=== PATIENT | female | born 1960 | race Caucasian/White ===

== ENCOUNTER 2019-01-03 19:22 | Emergency (ER) | payer BC, OTHER ==
--- NOTE | 2019-01-03 20:25 | ED ---
Dizziness - HPI Summary HPI Summary: Patient complains of elevated BP in 2 SBP 190s, lightheadedness, anxiety, migraine headache. Patient also complains of trouble sleeping over the past few months. Denies fever, cough, sore throat, CP, SOB, N/V/V abdominal pain, change in urine, change in BM. Medical history is migraines. No prior history of hypertension. Positive smoker, daily EtOH. - History Of Current Complaint Chief Complaint: EDDizziness Stated Complaint: HEADACHE/DIZZINESS/HIGH BLOOD PRESSURE PER PT Time Seen by Provider: 01/03/19 20:21 Hx Obtained From: Patient Onset/Duration: Resolved Timing: Minutes Severity Initially: Moderate Severity Currently: Mild Character: Lightheaded Aggravating Factor(s): Nothing Alleviating Factor(s): Nothing - Allergies/Home Medications Allergies/Adverse Reactions: Allergies Allergy/AdvReac Type Severity Reaction Status Date / Time Penicillins Allergy Rash And Verified 10/03/17 14:00 Itching codeine AdvReac Severe Anxiety Verified 10/03/17 14:00 Sulfa (Sulfonamide AdvReac Intermediate Agitation Verified 10/03/17 14:00 Antibiotics) Home Medications: Home Medications Cholecalciferol TAB* [Vitamin D TAB*] 1,000 unit PO DAILY 01/03/19 [History Confirmed 01/03/19] PMH/Surg Hx/FS Hx/Imm Hx Endocrine/Hematology History: Denies: Hx Anticoagulant Therapy, Hx Diabetes Cardiovascular History: Denies: Hx Hypertension, Hx Pacemaker/ICD GI History: Reports: Hx Hiatal Hernia - not sure if hiatal History: Denies: Hx Dialysis, Hx Renal Disease Musculoskeletal History: Reports: Other Musculoskeletal History - finger right pointer Sensory History: Denies: Hx Contacts or Glasses, Hx Hearing Aid Opthamlomology History: Denies: Hx Contacts or Glasses EENT History: Denies: Hx Deafness Neurological History: Denies: Hx Dementia Psychiatric History: Reports: Hx Anxiety - on xanex wants to take am of surgery Denies: Hx Panic Disorder - Cancer History Hx Chemotherapy: No Hx Radiation Therapy: No - Surgical History Surgery Procedure, Year, and Place: C-SECTIONS X3. HERNIA 1993. APPENDECTOMY. TONSILLECTOMY. 2016 [facility] hernia Hx Anesthesia Reactions: No Infectious Disease History: No Infectious Disease History: Denies: Traveled Outside the [place] in Last 30 Days - Family History Known Family History: Positive: Non-Contributory - Social History Alcohol Use: Daily Alcohol Amount: beer, wine Substance Use Type: Reports: None Smoking Status (MU): Light Every Day Tobacco Smoker Amount Used/How Often: 1 PPD quit 2 years ago and began again Have You Smoked in the Last Year: Yes Review of Systems Constitutional: Negative Eyes: Negative ENT: Negative Cardiovascular: Negative Respiratory: Negative Gastrointestinal: Negative Genitourinary: Negative Musculoskeletal: Negative Skin: Negative Positive: Headache Positive: Anxious All Other Systems Reviewed And Are Negative: Yes Physical Exam - Summary Physical Exam Summary: Neuro exam normal. Ambulating normally. Triage Information Reviewed: Yes Vital Signs On Initial Exam: Initial Vitals Temp Pulse Resp BP Pulse Ox 99.3 F 101 18 167/100 97 01/03/19 19:27 01/03/19 19:27 01/03/19 19:27 01/03/19 19:27 01/03/19 19:27 Vital Signs Reviewed: Yes Appearance: Positive: Well-Appearing Skin: Positive: Warm Head/Face: Positive: Normal Head/Face Inspection Eyes: Positive: Normal Neck: Positive: Supple Respiratory/Lung Sounds: Positive: Clear to Auscultation Cardiovascular: Positive: Normal Abdomen Description: Positive: Nontender Musculoskeletal: Positive: Normal Neurological: Positive: Normal Psychiatric: Positive: Normal AVPU Assessment: Alert - Sunflower Coma Scale Best Eye Response: 4 - Spontaneous Best Motor Response: 6 - Obeys Commands Best Verbal Response: 5 - Oriented Coma Scale Total: 15 Diagnostics - Vital Signs Vital Signs Temp Pulse Resp BP Pulse Ox 01/03/19 19:27 99.3 F 101 18 167/100 97 - Laboratory Result Diagrams: 01/03/19 20:43 01/03/19 20:43 Lab Statement: Any lab studies that have been ordered have been reviewed, and results considered in the medical decision making process. Dizzy Course/Dx - Course Course Of Treatment: Patient complains of elevated BP in 2 SBP 190s, lightheadedness, anxiety, migraine headache. Patient also complains of trouble sleeping over the past few months. Denies fever, cough, sore throat, CP, SOB, N /V/V abdominal pain, change in urine, change in BM. Medical history is migraines. No prior history of hypertension. Positive smoker, daily EtOH. Vital signs within normal limits. Labs unremarkable. EKG sinus rhythm. Symptoms resolved prior prior to history of present illness except for migraine. Migraine controlled with migraine cocktail. - Diagnoses Provider Diagnoses: Lightheadedness, Anxiety, Migraine Discharge ED - Sign-Out/Discharge Documenting (check all that apply): Patient Departure Patient Received Moderate/Deep Sedation with Procedure: No - Discharge Plan Condition: Stable Disposition: HOME Patient Education Materials: Migraine Headache (ED), Lightheadedness (ED), Anxiety (ED) Referrals: Talita Jordan [facility] [Primary Care Provider] - Additional Instructions: Drink plenty of fluids to maintain hydration. Monitor your blood pressure for 1 week. Follow-up with primary care. - Billing Disposition and Condition Condition: STABLE Disposition: Home - Attestation Statements Provider Attestation: I was available for consult. This patient was seen by the [facility]. The patient was not presented to, seen by, or examined by me. Jason Camargo MD
[2019-01-03 20:52] LABS: ABS Basophils 0.1 10^3/ul (0-0.2); ABS Eosinophils 0.3 10^3/ul (0-0.6); ABS Lymphocytes 3.3 10^3/ul (1.0-4.8); ABS Monocytes 0.9 10^3/ul (0-0.8); ABS Neutrophils 4.5 10^3/ul (1.5-7.7); Eosinophil % 2.8 %; Hematocrit 42 % (35-47); Hemoglobin 14.8 g/dL (12.0-16.0); Lymphocyte % 36.9 %; Mean Corpuscular HGB Conc 35 g/dL (31-36); Mean Corpuscular Hemoglobin 35 pg (27-31); Mean Corpuscular Volume 100 fL (80-97); Mean Platelet Volume 9.2 fL (7.4-10.4); Nucleated Red Blood Cells % 0.2; Platelet Count 242 10^3/uL (150-450); Red Blood Count 4.25 10^6 /uL (3.70-4.87); Red Cell Distribution Width 13 % (10-15)
[2019-01-03 20:59] LABS: Urine Appearance Clear; Urine Bacteria Absent (Absent); Urine Bilirubin Negative (Negative); Urine Blood Negative (Negative); Urine Color Yellow; Urine Glucose Negative (Negative); Urine Ketones Negative (Negative); Urine Nitrite Negative (Negative); Urine Protein Negative (Negative); Urine Red Blood Cell Trace(0-2/hpf) (Absent); Urine Specific Gravity 1.014 (1.010-1.030); Urine Squamous Epithelial Cell Present (Absent); Urine Urobilinogen Negative (Negative); Urine White Blood Cell Trace(0-5/hpf) (Absent)
[2019-01-03 21:07] LABS: Albumin 4.5 g/dL (3.2-5.2); BUN/Creatinine Ratio 17.5 (8-20); C Reactive Protein 1.51 mg/L (<8.01); Calcium 9.6 mg/dL (8.6-10.3); EGFR African American 132.3 (>60); EGFR Non-African American 109.3 (>60); Globulin 2.3 g/dL (2-4); Potassium 4.1 mmol/L (3.5-5.0); Total Bilirubin 0.3 mg/dL (0.2-1.0); Total Protein 6.8 g/dL (6.4-8.9)
[2019-01-03] MEDS ORDERED: diPHENhydraMINE PO* 50 MG PO ONE (21:09)
[2019-01-03] MEDS ORDERED: Ketorolac TAB * 10 MG TAB PO ONE (21:09)
[2019-01-03] MEDS ORDERED: Metoclopramide TAB* 10 MG PO ONE (21:10)
[2019-01-03 21:27] LABS: TSH (Thyroid Stimulating Horm) 1.64 mcIU/mL (0.34-5.60)
[2019-01-03 22:04] VITALS: BP 141/99
== END 2019-01-03 22:03 | disposition home or self-care (01) ==
LOC: ED 19:22
DX: F41.9 Anxiety disorder, unspecified (principal); G43.909 Migraine, unspecified, not intractable, without status migrainosus; F17.210 Nicotine dependence, cigarettes, uncomplicated; Z79.899 Other long term (current) drug therapy; Z88.5 Allergy status to narcotic agent; Z88.0 Allergy status to penicillin; Z88.2 Allergy status to sulfonamides
CPT/HCPCS: 36415; 80053; 81003; 81015; 84443; 84484; 85025; 86140; 87086; 93005; 99284; A9270-GY